=== PATIENT | female | born 1980 | race Two or more races ===

== ENCOUNTER 2024-01-07 19:23 | Emergency (ER) | payer OTHER, SELFPAY ==
[2024-01-07 19:27] VITALS: BP 122/81
--- NOTE | 2024-01-07 19:41 | ED.GENMED ---
History of Present Illness
General
Chief Complaint: Headache
Source: patient
Exam Limitations: none
Time Seen by Provider: 01/07/24 19:40
Nursing documentation reviewed up to this point in time: agreed with
Travel History
Have you had any contact with someone who has COVID-19?: No
Do you have any symptoms of coronavirus? Fever > 100 degrees, chills, cough, shortness of breath, sore throat, loss of taste or smell, muscle aches, or headache?: No
History of Present Illness
History of Present Illness:
43-year-old female with no significant past medical history presents stating for past 5 days she's had intermittent numbness of her tongue, left side of her face and left arm, lasting about 2 mintues each time, once or twice a day. Not related to
activity. Denies vision changes, no recent head injury, states mild frontal headache now, otherwise asymptomatic. Her last episode was 2 hours [employer] sitting when she had palpitations and felt short of breath. This episode also lasted 2 minutes.
Denies CP, SOB, abdominal pain.
Past History
Past History
ED Past Medical History: None
ED Past Surgical History: None
Social History
Tobacco: Non-smoker
Alcohol: None
Drug: None
Personal:
Living: with family
Employment: Not employed
Review of Systems
Review of Systems
Allergies reviewed?: Yes
All Other Systems: ROS reviewed and negative except as documented in HPI and ROS
Constitutional: Reports fatigue; Denies fever
EENT: Denies sore throat
Respiratory: Denies trouble breathing
Cardiac: Reports palpitations (As noted in HPI); Denies chest pain
ABD/GI: Denies abdominal pain, nausea, vomiting or diarrhea
: Denies dysuria, frequency or difficulty voiding
Musculoskeletal: Reports no symptoms
Skin: Reports no symptoms
Neurological: Reports headache and numbness; Denies dizzy or weakness
Psychiatric: Reports depression (Stress, emotional distress about impending divorce)
Phy Exam
Physical Exam
Physical Exam:
GENERAL: No acute distress. A&Ox3.
CONSTITUTIONAL: Afebrile.
EYES: PERRL, conjunctivae normal
ENMT: moist mucus membranes, Pharynx nl
RESPIRATORY: Regular respirations, nonlabored, lungs clear.
CARDIOVASCULAR: Regular rate and rhythm, no murmurs, no rubs.
GI: Soft, nontender, normal BS
MUSCULOSKELETAL: Moves with ease. Well perfused.
SKIN: Warm, dry, normal
PSYCH: Normal mood and affect. Well kept, interactive and appropriate
NEUROLOGIC: Awake, alert and oriented. Speech clear. Cranial nerves II through XII intact. Strength equal throughout. No focal neurological deficits. Ambulates well with steady gait
Course
Orders/Labs/Results
Orders:
Orders
01/07/24 20:06
CT Head W/o Iv Contrast Urgent
Comment:
Reason For Exam: left face, tongue, arm numbness
Test Result ONCE
01/07/24 20:23
Complete Blood Count/With Diff Urgent
Comprehensive Metabolic Panel Urgent
HCG, Serum Qualitative Screen Urgent
Abnormal Lab Results
01/07/24
20:23
WBC 12.3 H 10^3/uL
(4.8-10.8)
MPV 11.3 H fL
(7.4-10.4)
Abs Immat Gran (auto) 0.1 H 10^3/uL
(0-0.05)
Absolute Neuts (auto) 8.5 H 10^3/uL
(1.4-6.5)
Glucose 151 H mg/dl
(70-99)
01/07/24 20:23
01/07/24 20:23
Vital Signs
Initial and Last Documented VS:
Initial Vital Signs
Temp Pulse Resp BP Pulse Ox
98.1 F 79 16 122/81 99
01/07/24 19:27 01/07/24 19:27 01/07/24 19:27 01/07/24 19:27 01/07/24 19:27
Last Documented Vital Signs
Temp Pulse Resp BP Pulse Ox
98.1 F 79 16 122/81 99
01/07/24 19:27 01/07/24 19:27 01/07/24 19:27 01/07/24 19:27 01/07/24 19:27
MDM/Problems Addressed
Differential Diagnosis Includes:
TIA, CVA, brain tumor, stress
MDM/Problems Addressed:
43-year-old female with no significant past medical history presents stating for past 5 days she's had intermittent numbness of her tongue, left side of her face and left arm, lasting about 2 mintues each time, once or twice a day. Not related to
activity. Denies vision changes, no recent head injury, states mild frontal headache now, otherwise asymptomatic. Her last episode was 2 hours [employer] sitting when she had palpitations and felt short of breath. This episode also lasted 2 minutes.
Denies CP, SOB, abdominal pain.
No focal deficits, unremarkable neuro exam.
When asked about stress, she becomes tearful and admits she is going through a divorce and has a lot of stress at home. She does feel safe at home.
She does have women friends who are supportive but no family as they are all back in [facility].
CBC unremarkable, reactive mild leukocytosis
CMP: Unremarkable
HCG neg
Head CT: normal
After discussing test results:
Symptoms may very likely be stress/emotional related and she agrees.
*Critical Care Note
Total Time (30-74mins, 75-104mins- exclusive of procedures): Not Applicable
ED Attending Note
-
Portions of this chart may have been created with voice recognition software.� Occasional wrong word or��sound alike� substitutions may have occurred due to the inherent limitations of voice recognition software.
Discharge Plan
Departure
Patient Disposition: Home (Routine Discharge)
Date of Disposition: 01/07/24
Time of Disposition: 21:30
Patient with high blood pressure during this ER visit?: No
Condition: Good
Discharge Problem:
Stress due to family tension
Instructions: Stress
Prescriptions:
No Action
ibuprofen 600 mg tablet
600 mg PO Q6H PRN (Reason: pain) Qty: 20 0RF
Referrals:
Ysabel Mao MD [Family Provider] - As needed
Activity Restrictions/Additional Instructions:
As we discussed your workup here today shows nothing worrisome.
Interventions
Interventions:
*Risk Screen - Suicide Last Done: 01/07/24 19:27
*General Assessment Last Done: 01/07/24 19:27
*Neglect/Abuse Screening Last Done: 01/07/24 19:27
ED- Fall Risk Assessment Last Done: 01/07/24 21:38
*ED COVID-19 Vaccine History Last Done: 01/07/24 21:38
*Nursing Disposition Last Done: 01/07/24 21:38
ED- Neurological Assessment Last Done: 01/07/24 20:06
Discharge Date and Time
Discharge Date/Time: 01/07/24 21:44
Print Language: ARMENIAN
[2024-01-07 20:28] LABS: % Basophils 0.5 % (0-2); % Eosinophils 2.1 % (0-6); % Immature Granulocytes 0.4 % (0-0.5); % Lymphocytes 23.3 % (20.5-51.1); % Monocytes 4.6 % (1.7-9.3); % Neutrophils 69.1 % (42.2-75.2); Absolute Basophils 0.1 10^3/uL (0-0.2); Absolute Eosinophils 0.3 10^3/uL (0-0.7); Absolute Immature Granulocytes 0.1 10^3/uL (0-0.05); Absolute Lymphocytes 2.9 10^3/uL (1.2-3.4); Absolute Monocytes 0.6 10^3/uL (0.1-0.6); Absolute Neutrophils 8.5 10^3/uL (1.4-6.5); Hematocrit 38.6 % (37.0-47.0); Mean Corp Hgb Conc. 33.7 g/dL (33.0-37.0); Mean Corpuscular Hgb 27.8 pg (27.0-31.0); Mean Corpuscular Volume 82.5 fL (81.0-99.0); Mean Platelet Volume 11.3 fL (7.4-10.4); Nucleated Red Blood Cells % 0 %; Platelet Count 339 10^3/uL (130-400); Red Blood Cell Count 4.68 10^6/uL (4.20-5.40); Red Cell Dist. Width 14.3 % (11.5-14.5); White Blood Cell Count 12.3 10^3/uL (4.8-10.8)
[2024-01-07 20:33] LABS: HCG, Serum Qualitative Screen Negative
[2024-01-07 20:47] LABS: ALT (SGPT) 23 U/L (0-35); AST (SGOT) 21 U/L (14-36); Albumin 4.1 g/dl (3.5-5.0); Alkaline Phosphatase 90 U/L (38-126); Blood Urea Nitrogen 9 mg/dl (7-17); Calcium 9.1 mg/dl (8.4-10.2); Carbon Dioxide 26 mmol/L (22-30); Chloride 103 mmol/L (98-107); Glucose 151 mg/dl (70-99); Potassium 3.9 mmol/L (3.5-5.1); Sodium 138 mmol/L (135-145); Total Bilirubin 0.3 mg/dl (0.2-1.3); Total Protein 7.3 g/dl (6.3-8.2); eGFR > 60.00
== END 2024-01-07 21:44 | disposition home or self-care (01) ==
LOC: EMR 19:23
PROVIDERS: Registered Nurse; EMERGENCY PHYSICIAN Emergency Medicine; FAMILY PHYSICIAN Family Medicine
DX: Z73.3 Stress, not elsewhere classified (principal); Z63.8 Other specified problems related to primary support group; R20.0 Anesthesia of skin; R51.9 Headache, unspecified; R00.2 Palpitations; R06.02 Shortness of breath; R53.83 Other fatigue; Z63.5 Disruption of family by separation and divorce; Z88.0 Allergy status to penicillin
CPT/HCPCS: 99284; 70450; 80053; 84703; 85025

== ENCOUNTER 2024-01-17 16:27 | Emergency (ER) | payer SELFPAY ==
[2024-01-17 16:37] VITALS: BP 121/82
[2024-01-17 19:53] VITALS: BP 119/74
--- NOTE | 2024-01-17 22:51 | ED.SKININJ ---
HPI-Injury
General
Chief Complaint: Skin Surface Trauma
Source: patient
Exam Limitations: none
Time Seen by Provider: 01/17/24 18:29
Nursing documentation reviewed up to this point in time: agreed with
History of Present Illness-Injury
Is this injury a work related problem?: No
Is pt an associate of [facility]/[place]?: No
Initial Injury comments:
accidentally hit face on car door. Sustained small lac to her left eyebrow. Injury occurred just PROFILER. Reports Td last year
Past History
Past History
ED Past Medical History: None
ED Past Surgical History: None
Social History
Tobacco: Non-smoker
Alcohol: None
Drug: None
Personal:
Living: with family
Employment: Not employed
Review of Systems
Review of Systems
Allergies reviewed?: Yes
All Other Systems: ROS reviewed and negative except as documented in HPI and ROS
Constitutional: Reports no symptoms
Musculoskeletal: Reports no symptoms
Skin: Reports other (small laceration to left eyebrow)
Neurological: Reports no symptoms
Psychiatric: Reports no symptoms
Skin Exam
Laceration
Left Eye brow:
Length in cm: 1.5
Orientation: vertical
Type of Laceration: simple
Any active bleeding?: no active bleeding
Distal skin color and temperature: normal-warm & good color
Normal distal neurovascular exam: Yes
Range of motion: full
Phy Exam
General Physical Exam
General Presentation: well appearing and no apparent distress
General age: appears stated age
General Skin: warm
General Habitus: normal
Eye Exam
Eye Exam: PERRL, EOMI, conjunctiva normal and globe normal
Musculoskeletal Exam
Musculoskeletal Exam: full ROM
Skin Exam
Skin Exam: normal color, warm/dry and no rash
Psychiatric Exam
Psychiatric Exam: normal mood/affect
Course
Vital Signs
Initial and Last Documented VS:
Initial Vital Signs
Temp Pulse Resp BP Pulse Ox
98.2 F 60 18 121/82 100
01/17/24 16:37 01/17/24 16:37 01/17/24 16:37 01/17/24 16:37 01/17/24 16:37
Last Documented Vital Signs
Temp Pulse Resp BP Pulse Ox
98.2 F 62 18 119/74 100
01/17/24 16:37 01/17/24 19:53 01/17/24 19:53 01/17/24 19:53 01/17/24 19:53
Procedures
Laceration Closure
Left Eye brow:
Status of Wound: clean
Description of Wound Edges: sharp
Preparation: cleaned with saline and cleaned with Betadine
Anesthesia: 1% Lidocaine
Revision/Debridement: routine- no revision
Wound exploration: explored to base- no FB
Type of Closure: single layer closure
Skin Closure Material: 6-0 prolene
*Critical Care Note
Total Time (30-74mins, 75-104mins- exclusive of procedures): Not Applicable
ED Attending Note
-
Portions of this chart may have been created with voice recognition software.� Occasional wrong word or��sound alike� substitutions may have occurred due to the inherent limitations of voice recognition software.
Discharge Plan
Departure
Patient Disposition: Home (Routine Discharge)
Date of Disposition: 01/17/24
Time of Disposition: 18:58
Patient with high blood pressure during this ER visit?: No
Condition: Good
Covid-19: Not Applicable
Discharge Problem:
Laceration of eyebrow
Instructions: Laceration Repair With Stitches (DC)
Prescriptions:
No Action
ibuprofen 600 mg tablet
600 mg PO Q6H PRN (Reason: pain) Qty: 20 0RF
Activity Restrictions/Additional Instructions:
Sutures can be removed in 5-7 days by your family doctor
Interventions
Interventions:
*Risk Screen - Suicide Last Done: 01/17/24 19:52
*General Assessment Last Done: 01/17/24 19:52
*Neglect/Abuse Screening Last Done: 01/17/24 19:52
ED- Fall Risk Assessment Last Done: 01/17/24 19:54
*ED COVID-19 Vaccine History Last Done: 01/17/24 19:52
*Nursing Disposition Last Done: 01/17/24 19:54
ED-Skin Assessment Last Done: 01/17/24 19:52
Discharge Date and Time
Discharge Date/Time: 01/17/24 19:54
Print Language: YORUBA
== END 2024-01-17 19:54 | disposition home or self-care (01) ==
LOC: EMR 16:27
PROVIDERS: EMERGENCY PHYSICIAN Emergency Medicine
DX: S01.112A Laceration without foreign body of left eyelid and periocular area, initial encounter (principal); W22.8XXA Striking against or struck by other objects, initial encounter
CPT/HCPCS: 99282; 12011

== ENCOUNTER 2024-09-25 22:38 | Emergency (ER) | payer SELFPAY ==
[2024-09-25 22:40] VITALS: BP 116/81
[2024-09-26 00:39] VITALS: BMI 28.2
[2024-09-26 00:41] VITALS: BP 102/70
[2024-09-26 00:57] LABS: % Basophils 0.7 % (0-2); % Eosinophils 2.5 % (0-6); % Immature Granulocytes 0.5 % (0-0.5); % Lymphocytes 40.1 % (20.5-51.1); % Monocytes 6.8 % (1.7-9.3); % Neutrophils 49.4 % (42.2-75.2); Absolute Basophils 0.1 10^3/uL (0-0.2); Absolute Eosinophils 0.2 10^3/uL (0-0.7); Absolute Lymphocytes 3.3 10^3/uL (1.2-3.4); Absolute Monocytes 0.6 10^3/uL (0.1-0.6); Mean Corp Hgb Conc. 32.5 g/dL (33.0-37.0); Mean Corpuscular Volume 92.4 fL (81.0-99.0); Mean Platelet Volume 11.2 fL (7.4-10.4); Nucleated Red Blood Cells % 0 %; Platelet Count 291 10^3/uL (130-400); Red Blood Cell Count 4.33 10^6/uL (4.20-5.40); Red Cell Dist. Width 13.1 % (11.5-14.5); White Blood Cell Count 8.1 10^3/uL (4.8-10.8)
[2024-09-26 01:00] VITALS: BP 96/71
--- NOTE | 2024-09-26 01:01 | ED.GENMED ---
History of Present Illness
General
Chief Complaint: Numbness
Source: patient, family (Daughter at bedside, assisting with interpreting) and previous radiology exam (Unremarkable CT of the head December 2023.)
Exam Limitations: none
Time Seen by Provider: 09/26/24 00:40
Nursing documentation reviewed up to this point in time: agreed with
History of Present Illness
History of Present Illness:
This is a 44-year-old [id number] woman who states she went to bed last night with a right sided headache, awoke today with similar right sided headache but upon waking today also noted some pain of her right wrist, numbness of her right
hand. She does admit to sleeping on her sides and does believe she may have woken up lying on her right side. She also admits to similar sporadic headaches. She denies neck pain. No fever nor chills. She admits to increased housework over the
past few days, using her hands and wrists more but denies insightful injury, no fall. She took Tylenol earlier today without significant relief. She denies vision difficulty, no nausea or vomiting, no chest pain or back pain.
She takes no medicines on a daily basis.
Denies risk of , last menstrual period September 19.
Past History
Past History
ED Past Medical History: Other (Kidney stones)
ED Past Surgical History:
Social History
Tobacco: Non-smoker
Alcohol: None
Drug: None
Personal:
Living: with family
Employment: Not employed
Family History
Family History: Other (Noncontributory)
Phy Exam
Physical Exam
Physical Exam:
GENERAL: Alert , in no apparent distress. 44-year-old woman appears her stated age, awake and alert, pleasant, appears in no acute distress.
EYE: pupils equal and reactive. Extraocular muscles intact.anicteric
NECK: Supple, nontender, no meningismus, no significant adenopathy.
ENT: posterior pharynx is clear, oral mucosa is moist. TM clear b/l, nares patent.
CARDIAC: Regular rate and rhythm. no murmur.
LUNGS: Clear breath sounds bilaterally, no acute respiratory distress, no wheezes/rales/rhonchi
ABDOMEN: Soft, nondistended, without focal tenderness, no r/g, no cvat. normoactive BS.
NEUROLOGICAL: Alert and oriented x3, no focal neuro deficits. Motor strength is 5/5 bilaterally. Gross sensation is intact.
SKIN: Warm and dry, normal color, skin intact. No rash.
MUSCULOSKELETAL: No C/C/E. peripheral pulses are full and equal b/l. Mild tenderness about the right wrist with increased pain with flexion and extension of right wrist. There is no tenderness about the arm nor hand. No soft tissue swelling, no
erythema, no ecchymosis. Hand grasps are equal. Rapid capillary refill.
PSYCH: Normal and appropriate interaction.
Course
Orders/Labs/Results
Orders:
Orders
09/25/24 22:44
Complete Blood Count/With Diff Urgent
Comprehensive Metabolic Panel Urgent
HCG, Serum Qualitative Screen Urgent
Test Result ONCE
09/26/24 00:59
CT Head W/o Iv Contrast Urgent
Comment:
Reason For Exam: right sided headache x 1 day. RUE numbness/pain
09/26/24 01:01
Ketorolac [Toradol] 15 mg IV NOW STA
Abnormal Lab Results
09/26/24
00:48
MCHC 32.5 L g/dL
(33.0-37.0)
MPV 11.2 H fL
(7.4-10.4)
09/26/24 00:48
09/26/24 00:48
Vital Signs
Initial and Last Documented VS:
Initial Vital Signs
Temp Pulse Resp BP Pulse Ox
97.9 F 63 16 116/81 99
09/25/24 22:40 09/25/24 22:40 09/25/24 22:40 09/25/24 22:40 09/25/24 22:40
Last Documented Vital Signs
Temp Pulse Resp BP Pulse Ox
97.9 F 63 16 94/70 100
09/25/24 22:40 09/25/24 22:40 09/25/24 22:40 09/26/24 02:00 09/26/24 02:00
MDM/Problems Addressed
Differential Diagnosis Includes:
Concern for migraine headache, less likely intracranial mass lesion.
Physiologically right wrist pain and hand paresthesia are not consistent with right-sided headache/not consistent physiologically with CVA.
I suspect right wrist tendinitis, overuse injury. There is mild to moderate pain with range of motion of right wrist but no erythema nor soft tissue swelling nor ecchymosis. Nothing to suggest inflammatory arthropathy.
Neck is supple without tenderness. Less likely cervical radiculopathy but also a consideration.
Will medicate for pain with an IV dose of Toradol.
Due to headache will check CT of the head.
*Radiology
Radiology exam reviewed: radiology read reviewed (CT of the head is unremarkable)
*Pulse Oximetry
Patient hypoxic: no
*Critical Care Note
Total Time (30-74mins, 75-104mins- exclusive of procedures): Not Applicable
Update Note
Update Note:
03:00
Patient feeling improved after IV dose of Toradol. Resting comfortably.
Labs are unremarkable, within normal limits.
CT of the head is unremarkable.
I suspect right wrist tendinitis and patient will be placed in a Velcro wrist splint and provided with a prescription for ibuprofen for as needed pain.
I also suspect tension versus migraine headache. Overall improved after Toradol. Headache should improve with as needed ibuprofen as well.
Recommend prompt follow-up with PCP for recheck.
ED Attending Note
-
Portions of this chart may have been created with voice recognition software.� Occasional wrong word or��sound alike� substitutions may have occurred due to the inherent limitations of voice recognition software.
Discharge Plan
Departure
Patient Disposition: Home (Routine Discharge)
Date of Disposition: 09/26/24
Time of Disposition: 03:01
Patient with high blood pressure during this ER visit?: No
Condition: Good
Discharge Problem:
Right wrist tendinitis, Migraine versus tension headache
Instructions: Migraine in adults, Wrist Sprain ED
Prescriptions:
New
ibuprofen 600 mg tablet
600 mg PO QID PRN (Reason: fever or pain) Qty: 20 0RF
No Action
ibuprofen 600 mg tablet
600 mg PO Q6H PRN (Reason: pain) Qty: 20 0RF
Referrals:
Lenora Chilel CRNP [Family Provider] - Call in 1-3 days for appt
Interventions
Interventions:
*Risk Screen - Suicide Last Done: 09/25/24 22:40
*General Assessment Last Done: 09/25/24 22:40
*Neglect/Abuse Screening Last Done: 09/26/24 00:39
ED- Fall Risk Assessment Last Done: 09/26/24 00:39
*ED COVID-19 Vaccine History Last Done: 09/26/24 00:39
ED- Neurological Assessment Last Done: 09/26/24 00:36
Discharge Date and Time
Print Language: JORDANIAN
[2024-09-26 01:06] LABS: HCG, Serum Qualitative Screen Negative
[2024-09-26] MEDS: TORADOL 15 MG IV (01:14)
[2024-09-26 01:28] LABS: ALT (SGPT) 25 U/L (0-35); AST (SGOT) 29 U/L (14-36); Albumin 3.9 g/dl (3.5-5.0); Alkaline Phosphatase 59 U/L (38-126); Blood Urea Nitrogen 15 mg/dl (7-17); Calcium 9.1 mg/dl (8.4-10.2); Carbon Dioxide 24 mmol/L (22-30); Chloride 107 mmol/L (98-107); Estimated Creatinine Clearance 91 ml/min; Glucose 97 mg/dl (70-99); Potassium 4.6 mmol/L (3.5-5.1); Sodium 139 mmol/L (135-145); Total Bilirubin 0.6 mg/dl (0.2-1.3); Total Protein 6.9 g/dl (6.3-8.2); eGFR > 60.00
[2024-09-26 02:00] VITALS: BP 94/70
== END 2024-09-26 03:18 | disposition home or self-care (01) ==
LOC: EMR 22:38
PROVIDERS: Emergency Medicine; EMERGENCY PHYSICIAN Emergency Medicine; FAMILY PHYSICIAN Family Medicine Adult Medicine
DX: M77.8 Other enthesopathies, not elsewhere classified (principal); R51.9 Headache, unspecified
CPT/HCPCS: 96374; 99284; 29125; 70450; 80053; 84703; 85025